=== PATIENT | male | born 1965 | race Caucasian/White ===

== ENCOUNTER 2025-01-15 12:56 | Outpatient (AMB) | payer MEDICARE, SELFPAY ==
--- NOTE | 2025-01-15 13:01 | MHC.PC.OV ---
Vital Signs 01/15/25 13:08 01/15/25 13:49 01/15/25 14:45 01/15/25 14:46 Height 5 ft 11 in Weight 203 lb 2 oz BMI 28.3 BP 214/130 H 210/130 H 190/130 H 188/138 H Blood Pressure Location Rt brachial Lt brachial Lt brachial Rt brachial Position Sitting Sitting Sitting Sitting Respiration 16 Pulse 94 88 96 Pulse Source Pulse Oximeter Auscultation Pulse Oximeter Temp 98.3 F Temp Source Oral Pulse Oximetry (%) 97 98 Oxygen Delivery Method Room Air Room Air Intake Visit Reasons: est care/autistic Intake Note: patient here for new patient visit Archives Specialist Required: No Allergies No Known Allergies Allergy (Verified 01/15/25 13:43) Medication List - Last Reconciled 01/15/25 by Flip Rich CNP No Known Home Meds Tobacco use date assessed: 01/15/25 Dental Screening Dental Screen Date: 01/15/25 Did you have a dental visit in the last 12 months?: No Did you have a dental problem in the last 6 months where you did not have access to dental care?: No Was dental information given to patient?: Patient has dentist HPI HPI Comments History of Present Illness Details 59-year-old male. Accompanied by his elder brother who is his caregiver, presents to [facility] care. His brother notes that the patient takes omeprazole. He does not recall the dose of the medication. According to his brother, the patient has white coat syndrome. His blood pressure is usually normal at home. The last time his blood pressure was monitored at home was 3 years ago. Patient is a poor historian. Majority of health history obtain from his brother/caregiver. Prior PCP? - [facility] Last office visit/CPE/labs - About 3 years ago Acute issue(s) - None Past Medical History - GERD, white coat syndrome, BPH, asperger's syndrome, Surgical History - None Family History - Mom: Unknown cancer - internal organs Social History - Nonsmoker. Does not vape. Does not drink alcohol. Denies recreational drug use - Has been making healthy dietary choices. Exercises routinely. Generally sleep well Health maintenance - Last eye exam was about 10 years ago. Referred to care aid for routine eye exam - Last dental visit was over 10 years ago; encouraged to schedule an appointment with his dentist for routine dental care - Last tetanus vaccine was more than 10 years ago; received Tdap vaccine today - He has never been vaccinated for shingles; vaccination recommended - Has not been vaccinated for the flu this season; declines vaccination - Last colonoscopy was about 20 years ago: normal. Referred to [facility] [place] gastroenterology for colonoscopy Specialists None [facility] Medical History (Updated 01/15/25 @ 14:08 by Flip Rich CNP) Aspergers' syndrome Acid reflux High blood pressure Family History (Updated 01/15/25 @ 13:19 by Franny Bonner MA) Brother Alcohol abuse Mother Cancer Social History (Updated 01/15/25 @ 13:20 by Franny Bonner MA) Housing: Apartment Patient Tobacco Use Status: Never used Tobacco e-Cigarette/Vaping Use: Never Used Second Hand Smoke Exposure: No service: No Current occupational status: disabled Current occupational exposures/hazards: No Cognitive needs: No Hearing needs: No Vision needs: No Questionnaire PHQ-9 Over the last 2 weeks, how often have you been bothered by any of the following problems? 1. Little interest or pleasure in doing things: not at all 2. Feeling down, depressed, or hopeless: not at all 3. Trouble falling or staying asleep, or sleeping too much: not at all 4. Feeling tired or having little energy: not at all 5. Poor appetite or overeating: not at all 6. Feeling bad about yourself - or that you are a failure or have let yourself or your family down: not at all 7. Trouble concentrating on things, such as reading the newspaper or watching television: not at all 8. Moving or speaking so slowly that other people could have noticed. Or the opposite - being so fidgety or restless that you have been moving around a lot more than usual: not at all 9. Thoughts that you would be better off or of hurting yourself in some way: not at all Total score: 0 Depression Screening Interpretation: Negative Depression Screening Done: Yes 07656 - PHQ-9 Billing: Yes Source: Developed by Drs. Jonathan Butler, Johanna Sorenson, Jefferson Whitman and colleagues, with an educational allie from [employer]. Thrive Questionnaire Date Thrive assessed: 01/15/25 I am a: Parent/Caregiver What is your living situation today?: I have a steady place to live Within the past 12 months, did the food you bought not last and you didn't have the money to get more?: Never true Within the past 12 months, did you worry whether your food would run out before you got money to buy more?: Never true Do you have trouble paying for medicines?: No Do you have trouble getting transportation to medical appointments?: No Do you have trouble paying your heating and electricity bill?: No Do you have trouble taking care of your child, family member or friend?: No Do you have trouble with day-to-day activities such as bathing, preparing meals, shopping, managing finances, etc.?: No Are you currently unemployed and looking for a job?: No Are you interested in more education?: No Please select the resources that you would like help with: None Currently or been in a relationship where the following occur: I choose not to answer THRIVE Score: 0 AUDIT C Alcohol Use Questionnaire (AUDIT-C) 1. How often do you have a drink containing alcohol?: Never Total Score: 0 Score Reviewed/Action Taken: Yes BENEDICTO-7 AMB Questionnaire BENEDICTO-7 Date BENEDICTO - 7 assessed: 01/15/25 Feeling nervous, anxious, or on edge: 0 = Not at all Not being able to stop or control worryin = Not at all Worrying too much about different things: 0 = Not at all Trouble relaxin = Not at all Being so restless that it is hard to sit still: 0 = Not at all Becoming easily annoyed or irritable: 0 = Not at all Feeling afraid as if something awful might happen: 0 = Not at all Total BENEDICTO-7 score (0-4 normal; 5-9 mild; 10-14 moderate; 15-21 severe): 0 Source: Developed by Drs. Jonathan Butler, Johanna Sorenson, Jefferson Whitman and colleagues, with an educational allie from [employer]. BENEDICTO-7 Assessment Billing BENEDICTO-7 Assessment Tool: BENEDICTO-7 Assessment 71896 Review of Systems Const Details: Denies chills, Denies fatigue, Denies fever(s), Denies headache(s) and Denies weakness HEENT Denies change in vision, Denies dizziness, Denies headache(s), Denies hearing loss, Denies nasal congestion, Denies sinus pain, Denies sinus pressure and Denies sore throat Card Denies chest pain, Denies lightheadedness, Denies dyspnea and Denies other (palpitations) Resp Denies cough, Denies dyspnea and Denies wheezing GI Denies abdominal pain, Denies melena, Denies hematochezia, Denies change in bowel habits, Denies dyspepsia and Denies nausea Denies hematuria and Denies dysuria Musc Denies abnormal gait, Denies myalgias, Denies arthralgias, Denies numbness and Denies tingling Skin/Breast Denies rash, Denies unusual bruising and Denies wounds Neuro Denies abnormal gait, Denies dizziness, Denies headache(s), Denies memory loss, Denies numbness, Denies Sensory deficit (Neuro), Denies tingling and Denies weakness Psych Denies anxiety, Denies depression and Denies memory loss Endo Denies cold intolerance, Denies fatigue, Denies heat intolerance, Denies polydipsia and Denies polyuria Ignacio/Lymph Denies easy bleeding and Denies easy bruising Aller/Immun Denies wheezing Physical exam (Primary Care) Vital Signs: Last Vital Signs Temp 98.3 F 01/15/25 13:08 Pulse 96 01/15/25 14:45 Resp 16 01/15/25 13:08 BP 188/138 H 01/15/25 14:46 Pulse Ox 98 01/15/25 14:45 Oxygen Delivery Method Room Air 01/15/25 14:45 BMI result Body Mass Index 28.3 Tobacco/Smoking Status: Tobacco use Status Tobacco use date assessed 01/15/25 01/15/25 13:08 Patient Tobacco Use Status Never used Tobacco 01/15/25 13:20 e-Cigarette/Vaping Use Never Used 01/15/25 13:20 PHQ-9: PHQ-9 Score PHQ-9: Total score 0 01/15/25 15:05 Depression Screening Interpretation: Negative Thrive Assessment: Date of Thrive Assessment Date Thrive assessed 01/15/25 01/15/25 13:03 Currently or been in a relationship where the following occur: I choose not to answer Const Other: General: no acute distress, well developed, alert and awake Nutritional Appearance: well nourished Orientation/consciousness: patient oriented x3 HENMT Head: Yes normocephalic and Yes atraumatic Ears: hearing grossly normal bilaterally and TM's normal bilaterally General nose exam: Normal external nose present and Normal nares present Mouth: Normal oral and palatal mucosa present and moist mucous membranes Teeth and gingiva: dentition normal Throat: Yes oropharynx normal Eyes Pupils: Equal, round and reactive pupils present and Pupil accommodation reflex normal EOM: EOMs intact bilaterally Neck Neck: Yes normal visual inspection, Yes no lymphadenopathy and Yes trachea midline Thyroid: Thyroid normal Carotids: no bruits Lymphatic: no lymphadenopathy noted Chest Chest palpation & inspection: normal inspection of the chest Resp Effort & Inspection: normal respiratory effort Auscultation: clear to auscultation bilaterally Cardio Rate: regular rate Rhythm: regular rhythm Heart sounds: S1 normal heart sound present, S2 normal heart sound present, no gallops, no murmurs and no rubs Bruits: no abdominal aortic bruits and no carotid bruits GI Palpation (GI): No Abdominal aortic bruit present, Soft to palpation, nontender, No hepatosplenomegaly present and No Rebound tenderness present Auscultation: normal bowel sounds General: Yes no CVA tenderness Back/Spine/Pelvis Back: no CVA tenderness Cervical Spine: cervical ROM normal and No Cervical spine tenderness Thoracic/Lumbar Spine: thoraco-lumbar ROM normal, No pain with thoraco-lumbar ROM, No thoracic spinal tenderness and No lumbar spinal tenderness Skin General: warm and dry. Normal skin color. Normal skin turgor Lesions: no lesions Rashes: no rashes Trauma: no lacerations or abrasions Wounds: no wounds Nails: normal Neuro General: patient oriented x3, gait normal and CN's II-XI intact bilaterally Cranial nerves: Yes Equal, round and reactive pupils present Cognition (Neuro): normal cognition Gait exam (Neuro): Normal gait present Motor exam (neuro): 5/5 motor strength present throughout Sensory Exam: No Sensory deficit (Neuro) Deep tendon reflexes (DTR's): Right patellar reflex intensity grade: 2+ and Left patellar reflex intensity grade: 2+ Extrem General: Yes normal to inspection, No edema and No calf tenderness Psych Appearance: grossly normal Affect: normal affect Attitude: cooperative Thought process: Normal thought process present Immunizations Boostrix Tdap 2.5 Lf unit-8 mcg-5 Lf/0.5 mL intramuscular syringe Performing Provider: Flip Rich CNP Performing Location: [facility] [place] Family Medicine Administered by: Minna Meyer RN on 01/15/25 14:56 Dose Route Admin Location Dispensed Lot Number Expiration Date [employer] 0.5 mL IM Left Deltoid 0.5 mL [id number] 03/24/27 [id number] [employer] Total Dispensed Waste 0.5 mL 0 % VIS Given Date VIS Provided VIS Publication Date 01/15/25 Single Vaccine 21 Eligibility Eligibility Date Funding Source Not [facility] Eligible 01/15/25 Private Coding Level of Care Code New Pt Level 4 (19776) New Pt Prev Care 40-64y(19235) Diagnoses Normal physical examination, routine Z00.00 High blood pressure I10 Acid reflux K21.9 Eye exam, routine Z01.00 Colon cancer screening Z12.11 Vaccine counseling Z71.85 Laboratory tests ordered as part of a complete physical exam (CPE) Z00.00 Additional Codes BENEDICTO-7 Assessment Billing - BENEDICTO-7 Assessment Tool: BENEDICTO-7 Assessment 14713 ([id number]) PHQ-9 - 97823 - PHQ-9 Billing: Yes ([id number]) Time Spent (min) 75 Assessment & Plan Assessment & Plan (1) Normal physical examination, routine: Code(s): Z00.00 - Encounter for general adult medical examination without abnormal findings Category: Medical Plan: No significant functional limitation noted. Healthy diet and routine exercise encouraged. Perform lab work and follow-up for hypertension and labs review. Return sooner with symptoms or concerns. Verbalized understanding and agreed with the plan. (2) High blood pressure: Code(s): I10 - Essential (primary) hypertension Category: Medical Plan: According to his brother, the patient has white coat syndrome. His blood pressure is usually normal at home. The last time his blood pressure was monitored at home was 3 years ago. Initial blood pressure is 214/130, above goal of less than 140/90. Heart rate is 96 Blood pressure improved to 188/138 20-30 minute following administration of clonidine 0.2 mg. Labetalol 100 mg twice daily ordered; advised to take as prescribed. Instructed on the risks, benefits, potential adverse reactions of the medication. Low-sodium diet encouraged. Follow-up for a nurse visit for blood pressure check in 3 days and with PCP in 1 month for hypertension and labs reviewed. Return sooner with symptoms or concerns. Verbalized understanding and agreed with the treatment plan. (3) Acid reflux: Code(s): K21.9 - Gastro-esophageal reflux disease without esophagitis Category: Medical Plan: Healthy diet encouraged. Continue current treatment regimen. Follow-up as needed. Verbalized understanding and agreed with the plan. (4) Eye exam, routine: Code(s): Z01.00 - Encounter for examination of eyes and vision without abnormal findings Category: Medical Plan: Last eye exam was about 10 years ago. Referred to care aid for routine eye exam. (5) Colon cancer screening: Code(s): Z12.11 - Encounter for screening for malignant neoplasm of colon Category: Medical Plan: Last colonoscopy was about 20 years ago: normal. Referred to [facility] [place] gastroenterology for colonoscopy. (6) Vaccine counseling: Code(s): Z71.85 - Encounter for immunization safety counseling Category: Medical Plan: He has never been vaccinated for shingles. Instructed on importance of vaccination and encouraged shingles vaccination. He may get the vaccines from the local pharmacy. Verbalized understanding and agreed with the plan. (7) Laboratory tests ordered as part of a complete physical exam (CPE): Code(s): Z00.00 - Encounter for general adult medical examination without abnormal findings Category: Medical Plan: Fasting labs ordered as part of a complete physical exam. Advised to fast for at least 10 hours before getting labs drawn. May drink water Verbalized understanding and agreed with treatment plan. Plan Total time for this visit was 75 minutes. This include 55 minutes with patient, doing complete physical exam and chronic disease management/treatment, and 20 minutes reviewing, coordinating plan of care, and documenting. Orders: Orders Microalbumin, Random (w Creat) Today Z00.00 - Encounter for general adult medical examination without abnormal findings PSA, Ultra Sensitive Today Z00.00 - Encounter for general adult medical examination without abnormal findings TSH reflex Free T4 Today Z00.00 - Encounter for general adult medical examination without abnormal findings UA CC w/rflx Micro + Cult Today Z00.00 - Encounter for general adult medical examination without abnormal findings TDaP Immunization Today Z23 - Encounter for immunization Complete Blood Count Auto Diff Today Z00.00 - Encounter for general adult medical examination without abnormal findings Comprehensive [place]. Panel Fast Today Z00.00 - Encounter for general adult medical examination without abnormal findings Lipid Panel Today Z00.00 - Encounter for general adult medical examination without abnormal findings Vitamin D 25-OH Total Today Z00.00 - Encounter for general adult medical examination without abnormal findings Referrals Gastroenterology Referral Z12.11 - Encounter for screening for malignant neoplasm of colon Ophthalmology Referral Z01.00 - Encounter for examination of eyes and vision without abnormal findings Medications: New labetalol 100 mg PO BID 60 tabs 3RF 30 days
[2025-01-15 13:08] VITALS: BP 214/130; PULSE 94; RESP 16; TEMP 36.8; O2SAT 97; BMI 28.3
[2025-01-15 13:49] VITALS: BP 210/130; PULSE 88
[2025-01-15 14:45] VITALS: BP 190/130; PULSE 96; O2SAT 98
[2025-01-15 14:46] VITALS: BP 188/138
== END 2025-01-15 15:06 | disposition home or self-care (01) ==
LOC: HO.HMCFM 12:57
PROVIDERS: PCP Nurse Practitioner Family; Visit Provider Nurse Practitioner Family
DX: Z00.00 Encounter for general adult medical examination without abnormal findings (principal); I10 Essential (primary) hypertension; K21.9 Gastro-esophageal reflux disease without esophagitis; Z12.11 Encounter for screening for malignant neoplasm of colon; Z71.85 Encounter for immunization safety counseling; Z23 Encounter for immunization

== ENCOUNTER → 2025-01-15 12:56 | Outpatient (BNVA) | payer MEDICARE, SELFPAY | PROVIDERS: PCP Nurse Practitioner Family; Visit Provider Nurse Practitioner Family | DX: Z00.00 Encounter for general adult medical examination without abnormal findings (principal); Z23 Encounter for immunization; Z76.89 Persons encountering health services in other specified circumstances; I10 Essential (primary) hypertension; K21.9 Gastro-esophageal reflux disease without esophagitis; Z79.899 Other long term (current) drug therapy | CPT/HCPCS: 90471; 90715; 96127; 99202; 99386 ==